=== PATIENT | male | born 1975 | race Hispanic/Latino ===

== ENCOUNTER 2016-09-07 09:55 | Emergency (ER) | payer OTHER ==
[~2016-09-07] VITALS: Ht 170.2 cm; Wt 77.0 kg
[~2016-09-07 09:55] MED LIST: BENADRYL 50MG C50 MG PO; MEDDOSEPAK PO; PEPCID20 MG PO
[2016-09-07] MEDS ORDERED: GENTAMICIN15 ML/BTL OS (10:51)
[2016-09-07] MEDS ORDERED: (None)3.5 GM OS (10:51)
[2016-09-07 11:00] VITALS: BP 121/74
== END 2016-09-07 11:00 | disposition home or self-care (01) | DRG 125 ==
LOC: ED 09:55
DX: H10.9 Unspecified conjunctivitis (principal); F17.210 Nicotine dependence, cigarettes, uncomplicated